=== PATIENT | female | born 1980 | race Caucasian/White ===

== ENCOUNTER 2021-08-27 18:27 | Emergency (ER) | payer OTHER, SELFPAY ==
[2021-08-27 18:42] VITALS: BP 115/83; PULSE 68; RESP 16; TEMP 36.3; O2SAT 98
--- NOTE | 2021-08-27 19:10 | PC.NURSE ---
Report received from JOSEF Barragan. Assumed care of patient at this time.
--- NOTE | 2021-08-27 19:15 | ED.WOUNDLAC ---
HPI - Wound/Laceration General Chief Complaint: Wound/Laceration Stated Complaint: spider bite Time Seen by Provider: 08/27/21 19:04 Source: patient History of Present Illness HPI narrative: Patient presents with concern for spider bite. Reports irritated skin and a few days ago however symptoms got worse and she had more swelling pain and redness to the area. Reports she has had a history of abscess related to insect bites and this feels similar to her prior episodes. Due to worsening pain she came to the ER for evaluation. She denies any fevers, nausea, vomiting has had a cough or shortness of breath. Related Data Allergies Allergy/AdvReac Type Severity Reaction Status Date / Time codeine Allergy Unknown Verified 08/27/21 18:38 Penicillins Allergy Unknown Verified 08/27/21 18:38 Review of Systems Review of Systems: CONSTITUTIONAL: Denies fever, chills, or sweats. EYES: Denies visual changes, redness, or discharge. ENT: Denies rhinorrhea, congestion, sore throat, or otalgia. CARDIOVASCULAR: Denies chest pain, palpitations, or edema. RESPIRATORY: Denies cough or dyspnea. GASTROINTESTINAL: Denies abdominal pain, nausea, vomiting, or diarrhea. GENITOURINARY: Denies dysuria or hematuria. SKIN: Denies rash or itching. MUSCULOSKELETAL: Denies back pain, joint pain, or myalgia. NEUROLOGIC: Denies headache, numbness, dizziness, or weakness. PSYCHIATRIC: Denies anxiety or depression. All systems reviewed & are unremarkable except as noted in HPI and below PMFSH Past Medical History Medical History (Updated 08/27/21 @ 19:45 by Ezio Mann MD) Patient denies significant medical history Social History Social History (Updated 08/27/21 @ 19:41 by Ezio Mann MD) Smoking status: Current every day smoker Exam Narrative: GENERAL: Well-appearing, well-nourished, and in no acute distress. HEAD: Normocephalic, atraumatic. EYES: PERRLA and EOMI. ENT: Nares clear, no rhinorrhea or epistaxis. Mucous membranes moist. EXTREMITIES: Normal range of motion. No edema. SKIN: Warm, dry, 3 x 4 area of erythema that is tender to palpation with central edema and fluctuance on the right lower lateral back NEURO: No focal deficits. Alert and oriented x3. PSYCH: Normal mood and affect. Course Vital Signs Vital signs: Vital Signs Temperature 36.3 C L 08/27/21 18:42 Pulse Rate 68 08/27/21 18:42 Respiratory Rate 16 08/27/21 18:42 Blood Pressure 115/83 08/27/21 18:42 Pulse Oximetry 98 08/27/21 18:42 Temperature 37.1 C 08/27/21 19:18 Pulse Rate 98 08/27/21 19:18 Respiratory Rate 17 08/27/21 19:18 Blood Pressure 127/79 08/27/21 19:18 Pulse Oximetry 98 08/27/21 19:18 Procedures Abscess I/D back: Date of Incision: 08/27/21 Time of Incision: 19:20 Side (if applicable): right Local Anesthetic: lidocaine 1% Amount of anesthesia used (mL): 4 Technique: incised with #11 blade Amount of fluid expressed (mL): 3 Irrigation: Yes Packing used?: none I&D Results: Pus MDM - Wound/Laceration MDM Narrative Medical decision making narrative: H&P as above, vss, pt looks clinically well, exam large area of erythema with central fluctuance bedside ultrasound shows approximately 1 cm deep area of fluid collection, additional labs/img considered. symptomatic relief available as needed, patient treated with an I&D on reevaluation pt continues to looks clinically well reports large improvement in symptoms patient tolerated procedure well. Suspect insect bite converted to abscess and cellulitis, dns Soft tissue infection, severe sepsis. plan to tx/monitor as op w/ pcm f/u findings/plan discussed with pt, pt agree/comfortable with plan, return precautions given Discharge Plan Discharge Clinical Impression: Abscess Cellulitis Qualifiers: Site of cellulitis: other site Qualified Code(s): L03.818 - Cellulitis of other sites Patient Disposition:
[2021-08-27 19:18] VITALS: BP 127/79; PULSE 98; RESP 17; TEMP 37.1; O2SAT 98
== END 2021-08-27 19:51 | disposition home or self-care (01) ==
PROVIDERS: Emergency Provider Emergency Medicine
DX: L02.212 Cutaneous abscess of back [any part, except buttock and flank] (principal); L03.312 Cellulitis of back [any part except buttock and flank]; F17.200 Nicotine dependence, unspecified, uncomplicated
CPT/HCPCS: 10060; 99283

== ENCOUNTER 2022-01-03 09:53 | Emergency (ER) | payer OTHER, SELFPAY ==
[2022-01-03 09:59] VITALS: BP 110/73; PULSE 111; RESP 20; TEMP 36.4; O2SAT 99
--- NOTE | 2022-01-03 11:55 | ED.WOUNDLAC ---
HPI - Wound/Laceration General Chief Complaint: Wound/Laceration <Kayla Eaton PA-C - Last Filed: 01/03/22 12:05> Stated Complaint: infection on my R hip <Kayla Eaton PA-C - Last Filed: 01/03/22 12:05> Time Seen by Provider: 01/03/22 10:40 <Kayla Eaton PA-C - Last Filed: 01/03/22 12:05> Source: patient <Kayla Eaton PA-C - Last Filed: 01/03/22 12:05> Mode of arrival: ambulatory <Kayla Eaton PA-C - Last Filed: 01/03/22 12:05> Limitations: no limitations <Kayla Eaton PA-C - Last Filed: 01/03/22 12:05> History of Present Illness HPI narrative: This is a 41-year-old female that presents to the emergency department for redness and swelling to the right buttock. Present over the last couple of days. Reports pain in the area unrelieved by [id number] medications. Denies fever or drainage. <Kayla Eaton PA-C - Last Filed: 01/03/22 12:05> Related Data Allergies/Adverse Reactions: Allergies Allergy/AdvReac Type Severity Reaction Status Date / Time codeine Allergy Unknown Verified 01/03/22 10:02 Penicillins Allergy Unknown Verified 01/03/22 10:02 oxycodone [From OxyContin] AdvReac Vomiting Verified 01/03/22 10:02 <Kayla Eaton PA-C - Last Filed: 01/03/22 12:05> Review of Systems Review of Systems: CONSTITUTIONAL: Denies fever SKIN: Reports erythema <Kayla Eaton PA-C - Last Filed: 01/03/22 12:05> All systems reviewed & are unremarkable except as noted in HPI and below <Kayla Eaton PA-C - Last Filed: 01/03/22 12:05> PMFSH Past Medical History Medical History: Medical History (Updated 01/03/22 @ 11:56 by Kayla Eaton PA-C) Patient denies significant medical history <IVORY Meyers Last Filed: 01/03/22 12:05> Social History Social History: Social History (Updated 08/27/21 @ 19:41 by Ezio Mann MD) Smoking status: Current every day smoker <Kayla Eaton PA-C - Last Filed: 01/03/22 12:05> Exam Narrative: GENERAL: Well-appearing, well-nourished, and in no acute distress. HEAD: Normocephalic, atraumatic. EYES: EOMI. CHEST: Clear to auscultation. No respiratory distress. No wheezes rales or rhonchi HEART: Regular rate and rhythm. No murmur heard. Normal peripheral pulses. EXTREMITIES: Normal range of motion. No edema. Right buttock with mild to moderate area of erythema and induration. No fluctuance to suggest abscess SKIN: Warm, dry, no rash. NEURO: No focal deficits. Alert and oriented x3. PSYCH: Normal mood and affect <Kayla Eaton PA-C - Last Filed: 01/03/22 12:05> Course Vital Signs Vital signs: Vital Signs Temperature 97.6 F 01/03/22 09:59 Pulse Rate 111 H 01/03/22 09:59 Respiratory Rate 20 01/03/22 09:59 Blood Pressure 110/73 01/03/22 09:59 Pulse Oximetry 99 01/03/22 09:59 Temperature 97.6 F 01/03/22 09:59 Pulse Rate 111 H 01/03/22 09:59 Respiratory Rate 20 01/03/22 09:59 Blood Pressure 110/73 01/03/22 09:59 Pulse Oximetry 99 01/03/22 09:59 <IVORY Meyers Last Filed: 01/03/22 12:05> MDM - Wound/Laceration MDM Narrative Medical decision making narrative: Patient presents to the emergency department for an area of mild cellulitis to the right buttock. Noted over the last couple of days. She is afebrile and nontoxic-appearing. Patient will be started on oral antibiotics as there is no evidence for abscess at this time. She reports her pain is unrelieved with [id number] medications. Will give her a short course of tramadol. She is to follow-up with her primary care doctor. She was given warnings to return to the ER <Kayla Eaton PA-C - Last Filed: 01/03/22 12:05> Critical Care Time Critical Care Time Critical Care Time: No <Kayla Eaton PA-C - Last Filed: 01/03/22 12:05> Discharge Plan Discharge Clinical Impression: Cellulitis Qualifiers: Site of cellulitis: butto
== END 2022-01-03 12:07 | disposition home or self-care (01) ==
PROVIDERS: Emergency Provider Emergency Medicine; PCP Physician Assistant
DX: L03.317 Cellulitis of buttock (principal)
CPT/HCPCS: 99283